=== PATIENT | female | born 1965 | race Caucasian/White ===

== ENCOUNTER 2019-12-18 10:50 | Outpatient (CLI) | payer BC, SELFPAY ==
--- NOTE | 2019-12-18 11:00 | USCV_ITS ---
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
== END 2019-12-18 10:51 | disposition home or self-care (01) ==
LOC: US 10:51
PROVIDERS: Family Provider Electrodiagnostic Medicine; PCP Electrodiagnostic Medicine; Visit Provider Electrodiagnostic Medicine
DX: I73.9 Peripheral vascular disease, unspecified (principal)
CPT/HCPCS: 93922

== ENCOUNTER 2020-07-30 13:31 | Outpatient (CLI) | payer BC, SELFPAY ==
--- NOTE | 2020-07-30 13:37 | XRR_ITS ---
PROCEDURE INFORMATION: Exam: XR Chest, 2 Views Exam date and time: 07/30/2020 1:57 PM Age: 54 years old Clinical indication: Cough; Additional info: Cough, chronic TECHNIQUE: Imaging protocol: XR of the chest Views: 2 views. COMPARISON: No relevant prior studies available. FINDINGS: Lungs: Unremarkable. No consolidation. Pleural space: Unremarkable. No pleural effusion. No pneumothorax. Heart/Mediastinum: Unremarkable. No cardiomegaly. Bones/joints: Unremarkable. XR/XR chest 2V* [id number] IMPRESSION: No acute findings.
== END 2020-07-30 13:32 | disposition home or self-care (01) ==
LOC: RAD 13:34
PROVIDERS: PCP Electrodiagnostic Medicine; Visit Provider Electrodiagnostic Medicine
DX: R05 Cough (principal)
CPT/HCPCS: 71046

== ENCOUNTER → 2021-07-21 08:49 | Outpatient (BNVA) | payer SELFPAY | PROVIDERS: PCP Electrodiagnostic Medicine; Visit Provider Nurse Practitioner Women's Health | DX: Z01.419 Encounter for gynecological examination (general) (routine) without abnormal findings (principal); Z12.39 Encounter for other screening for malignant neoplasm of breast; Z79.890 Hormone replacement therapy | CPT/HCPCS: 88175 ==

== ENCOUNTER 2022-01-12 14:24 | Outpatient (CLI) | payer OTHER, SELFPAY ==
--- NOTE | 2022-01-12 14:32 | US_ITS ---
WS: [id number] Left breast ultrasound, 01/12/2022 Clinical Data: N64.4 - Mastodynia Comparison: Mammogram, 01/12/2022 Findings: The left breast was imaged in the upper outer quadrant where the patient experienced pain. The right breast did not require imaging because there was no pain. There were no cysts, masses or abnormal tis nelson. Only normal breast tissue is seen. US/US breast LT limited* [id number] Impression: 1. Normal left breast ultrasound. 2. Return to annual screening mammograms. BIRADS: 2-Benign FOLLOW UP: 1 Year Follow-up
--- NOTE | 2022-01-12 14:32 | MM_ITS ---
WS: [id number] Bilateral diagnostic 3D tomosynthesis digital mammogram, 01/12/2022 Clinical Data: N64.4 - Mastodynia Comparison: 04/02/2019, 03/14/2018, 01/25/2017, 08/09/2016, 12/24/2015, 11/06/2014, 10/09/2013. Findings: The breast parenchymal pattern shows fat replacement. No spiculated masses or clustered calcification s are seen. There are no secondary signs of carcinoma. There are lymph nodes in both axilla. MM/[place] [id number] Impression: 1. Negative bilateral mammograms. 2. Bilateral breast ultrasound will be performed. BIRADS: 2-Benign FOLLOW UP: Need Additional Imaging The CAD spot checker was used.
== END 2022-01-12 14:25 | disposition home or self-care (01) ==
PROVIDERS: PCP Electrodiagnostic Medicine; Visit Provider Nurse Practitioner Women's Health
DX: N64.4 Mastodynia (principal)
CPT/HCPCS: 76642; 77062

== ENCOUNTER 2023-05-16 13:37 | Outpatient (CLI) | payer SELFPAY ==
--- NOTE | 2023-05-16 13:56 | MM_ITS ---
WS: [email or web address] BILATERAL 3D TOMOSYNTHESIS DIGITAL SCREENING MAMMOGRAPHY WITH CAD CLINICAL INFORMATION: SCREENING HISTORY: Screening mammogram. No current complaints. COMPARISON: 2021 TECHNIQUE: Bilateral CC and MLO views. FINDINGS: Scattered fibroglandular densities bilaterally. No suspicious focal mass, asymmetry, calcifications, or architectural distortion. No evidence of malignancy. Incidental punctate calcifications MM/[place] [id number] IMPRESSION: BI-RADS: 2-Benign FOLLOW UP: 1 Year Follow-up Recommend return to annual screening mammography.
== END 2023-05-16 13:38 | disposition home or self-care (01) ==
LOC: RAD 13:41 → MOBLMAM 14:38
PROVIDERS: PCP Electrodiagnostic Medicine; Visit Provider Electrodiagnostic Medicine
DX: Z12.31 Encounter for screening mammogram for malignant neoplasm of breast (principal)
CPT/HCPCS: 77063; 77067

== ENCOUNTER 2024-01-04 15:27 | Outpatient (CLI) | payer BC, SELFPAY ==
--- NOTE | 2024-01-04 15:30 | XR_ITS ---
WS: [email or web address] SCREENING DEXA SCAN [employer] CLINICAL INFORMATION: postmenopausal COMPARISON: None. FINDINGS: The L1-L4 bone mineral density measures 1.478 g/cm2. This corresponds to a T score score of 2.5 and Z score of 2.6. Left femoral neck bone mineral density measures 1.023 g/cm2. This corresponds to a T score of 0.1 and Z score of 0.3. Right femoral neck bone mineral density measures 1.047 g/cm2. This corresponds to a T score 0.3of and Z score of 0.5. Mean femoral neck bone mineral density measures 1.035 g/cm2. This corresponds to a T score of 0.2 and Z score of 0.4. IMPRESSION: Normal bone mineralization lumbar spine. Normal bone mineralization femoral necks. Patient's FRAX calculated 10 year probability for major osteoporotic fracture is 5.9% and osteoporoti c hip fracture is 0.2%.
== END 2024-01-04 15:28 | disposition home or self-care (01) ==
LOC: RAD 15:28
PROVIDERS: PCP Family Medicine; Visit Provider Family Medicine
DX: Z78.0 Asymptomatic menopausal state (principal)
CPT/HCPCS: 77080

== ENCOUNTER → 2024-01-13 09:51 | Outpatient (BNVA) | payer BC, SELFPAY | PROVIDERS: PCP Family Medicine; Visit Provider Family Medicine | DX: Z13.6 Encounter for screening for cardiovascular disorders (principal) | CPT/HCPCS: 80053; 80061; 84443; 85025 ==

== ENCOUNTER → 2024-02-10 09:26 | Outpatient (BNVA) | payer BC, SELFPAY | PROVIDERS: PCP Family Medicine; Visit Provider Family Medicine | DX: J02.9 Acute pharyngitis, unspecified (principal) | CPT/HCPCS: 87070; 87880 ==

== ENCOUNTER 2024-08-08 10:40 | Outpatient (CLI) | payer BC, SELFPAY ==
--- NOTE | 2024-08-08 10:41 | MM_ITS ---
WS: [id number] BILATERAL SCREENING DIGITAL TOMOSYNTHESIS MAMMOGRAM WITH CAD HISTORY: SCREENING COMPARISON: 05/16/2023, 01/12/2022 Bilateral CC and MLO views with tomosynthesis and synthetic mammography submitted. Computer aided det ection analyzed. Breast composition: There are scattered areas of fibroglandular density. No suspicious masses, microc alcifications or architectural distortion. Benign scattered calcifications within each breast. MM/MM scr BI tomosynthesis [id number] IMPRESSION: BI-RADS: 2 - Benign. FOLLOW UP: 1 Year Follow-up
== END 2024-08-08 10:41 | disposition home or self-care (01) ==
LOC: RAD 10:40
PROVIDERS: PCP Family Medicine; Visit Provider Family Medicine
DX: Z12.31 Encounter for screening mammogram for malignant neoplasm of breast (principal)
CPT/HCPCS: 77063; 77067

== ENCOUNTER 2024-10-15 11:10 | Outpatient (CLI) | payer OTHER, SELFPAY ==
--- NOTE | 2024-10-15 11:17 | XRR_ITS ---
PROCEDURE INFORMATION: Exam: XR Cervical Spine Exam date and time: 10/15/2024 11:33 AM Age: 59 years old Clinical indication: Neck pain; Pain in thoracic spine; Prior surgery; Surgery date: 6+ months; Surgery type: X2 laminectomies in l-spine; Patient HX: Years prior bulging disc in neck, x10 days ago woke up with same symptoms and pain radiating down right arm TECHNIQUE: Imaging protocol: Radiologic exam of the cervical spine. Views: 2 or 3 views. COMPARISON: CR XR thoracic spine 3V* [id number] 10/15/2024 11:33 AM FINDINGS: Bones/joints: The odontoid is intact. Normal cervical spine alignment. No severe loss of disc height visualized in the cervical spine. No acute fracture. No dislocation. Facet joints are well-maintained throughout the cervical spine. Soft tissues: Unremarkable. PROCEDURE INFORMATION: Exam: XR Thoracic Spine Exam date and time: 10/15/2024 11:33 AM Age: 59 years old Clinical indication: Neck pain; Pain in thoracic spine; Prior surgery; Surgery date: 6+ months; Surgery type: X2 laminectomies in l-spine; Patient HX: Years prior bulging disc in neck, x10 days ago woke up with same symptoms and pain radiating down right arm TECHNIQUE: Imaging protocol: Radiologic exam of the thoracic spine. Views: 3 views. COMPARISON: CR XR cervical spine 3V* [id number] 10/15/2024 11:33 AM FINDINGS: Bones/joints: No acute fracture. No dislocation. Normal alignment of the thoracic spine. Disc spaces appear well-maintained. Minimal multilevel endplate sclerosis. Soft tissues: Unremarkable. XR/XR cervical spine 3V* [id number] IMPRESSION: 1. No acute fracture or dislocation. 2. Cervical spine alignment is intact. No significant degenerative changes of the cervical spine. IMPRESSION: No acute thoracic spine fracture or dislocation. Minimal multilevel endplate sclerosis.
--- NOTE | 2024-10-15 11:17 | XRR_ITS ---
PROCEDURE INFORMATION: Exam: XR Cervical Spine Exam date and time: 10/15/2024 11:33 AM Age: 59 years old Clinical indication: Neck pain; Pain in thoracic spine; Prior surgery; Surgery date: 6+ months; Surgery type: X2 laminectomies in l-spine; Patient HX: Years prior bulging disc in neck, x10 days ago woke up with same symptoms and pain radiating down right arm TECHNIQUE: Imaging protocol: Radiologic exam of the cervical spine. Views: 2 or 3 views. COMPARISON: CR XR thoracic spine 3V* [id number] 10/15/2024 11:33 AM FINDINGS: Bones/joints: The odontoid is intact. Normal cervical spine alignment. No severe loss of disc height visualized in the cervical spine. No acute fracture. No dislocation. Facet joints are well-maintained throughout the cervical spine. Soft tissues: Unremarkable. PROCEDURE INFORMATION: Exam: XR Thoracic Spine Exam date and time: 10/15/2024 11:33 AM Age: 59 years old Clinical indication: Neck pain; Pain in thoracic spine; Prior surgery; Surgery date: 6+ months; Surgery type: X2 laminectomies in l-spine; Patient HX: Years prior bulging disc in neck, x10 days ago woke up with same symptoms and pain radiating down right arm TECHNIQUE: Imaging protocol: Radiologic exam of the thoracic spine. Views: 3 views. COMPARISON: CR XR cervical spine 3V* [id number] 10/15/2024 11:33 AM FINDINGS: Bones/joints: No acute fracture. No dislocation. Normal alignment of the thoracic spine. Disc spaces appear well-maintained. Minimal multilevel endplate sclerosis. Soft tissues: Unremarkable. XR/XR thoracic spine 3V* [id number] IMPRESSION: 1. No acute fracture or dislocation. 2. Cervical spine alignment is intact. No significant degenerative changes of the cervical spine. IMPRESSION: No acute thoracic spine fracture or dislocation. Minimal multilevel endplate sclerosis.
== END 2024-10-15 11:11 | disposition home or self-care (01) ==
DX: M54.2 Cervicalgia (principal)
CPT/HCPCS: 72040; 72072

== ENCOUNTER 2024-11-07 10:45 | Outpatient (CLI) | payer OTHER, SELFPAY ==
--- NOTE | 2024-11-07 10:49 | CT_ITS ---
WS: [id number] CT NECK WITH CONTRAST HISTORY: HYPERTROPHY OF TONSILS TECHNIQUE: Contiguous 2 mm axial images are performed through the neck with intravenous contrast. Sag ittal and coronal reformats are also submitted. All CT scans at [facility] use at least one o f these dose optimization techniques: automated exposure control; mA and/or kV adjustment per patient size (includes targeted exams where dose is matched to clinical indication); or iterative reconstruc tion. CONTRAST: CONTRAST: Omnipaque 350; 100 mL IV. DLP: 200.31 mGy.cm COMPARISON: None available. Nasopharynx, oropharynx, hypopharynx and larynx are unremarkable. No soft tissue masses or abnormal e nhancement. Torus tubarius and fossa of Rosenmuller and parapharyngeal fat are normal. Bilateral cervical chain lymph nodes are not significantly enlarged. The largest on the LEFT at level 1B measures 9.4 mm. Largest on the RIGHT at level 2A measures 0.8 mm. There are additional smaller c ervical chain lymph nodes. Very small RIGHT thyroid nodules. Parotid and submandibular glands are normal. No osseous abnormalities. Visualized portions of the skull base demonstrate no abnormalities. Orbits and globes are within norm al limits. No soft tissue masses. Visualized paranasal sinuses and mastoid air cells are normal. Lung apices are clear. CT/CT neck w con* [id number] IMPRESSION: 1. Bilateral cervical chain lymph nodes are top normal size. No necrotic or hy pervascular adenopathy. 2. No laryngeal mass or abnormal enhancement identified.
[2024-11-07] MEDS: iohexol 350 mg/mL 500 mL Btl (per mL) IV (11:20)
== END 2024-11-07 10:46 | disposition home or self-care (01) ==
LOC: RAD 10:48
PROVIDERS: PCP Pediatrics; Visit Provider Specialist
DX: J35.1 Hypertrophy of tonsils (principal); R13.19 Other dysphagia; R59.9 Enlarged lymph nodes, unspecified
CPT/HCPCS: 70491

== ENCOUNTER 2024-11-07 11:44 | Outpatient (RCR) | payer OTHER, SELFPAY | END 2024-11-30 23:59 | disposition home or self-care (01) | LOC: SPT 11:44 | PROVIDERS: PCP Pediatrics | DX: Q78.2 Osteopetrosis (principal); M54.2 Cervicalgia | CPT/HCPCS: 97110; 97161 ==

== ENCOUNTER → 2025-05-02 10:42 | Outpatient (BNVA) | payer OTHER, SELFPAY | PROVIDERS: PCP Pediatrics; Visit Provider Podiatrist Foot & Ankle Surgery | DX: M79.671 Pain in right foot (principal); M79.672 Pain in left foot; M20.22 Hallux rigidus, left foot; M20.21 Hallux rigidus, right foot; M72.2 Plantar fascial fibromatosis | CPT/HCPCS: 73630 ==